=== PATIENT | female | born 1995 | race Hispanic/Latino ===

== ENCOUNTER 2021-09-04 05:56 | Inpatient (IN) | payer BC ==
[2021-09-04 06:18] VITALS: BMI 24.5
[2021-09-04] MEDS ORDERED: Fentanyl 2 mcg/Bup 0.1% Cadd 100 ML ONE (07:13)
[2021-09-04 07:17] LABS: Hemoglobin 12.7 g/dL (12.0-15.5); Mean Corpuscular HGB CONC 34.9 g/dL (32.0-36.0); Mean Corpuscular Hemoglobin 33.6 pg (27.0-33.0); Mean Corpuscular Volume 96.3 fl (81.6-98.3); Mean Platelet Volume 12.9 fl (7.4-10.4); Platelet Count 159 10x3/uL (150-450); RBC Distribution Width 13.1 % (11.5-14.5); Red Blood Cell (RBC) Count 3.78 10x6/uL (3.90-5.03)
[2021-09-04 07:46] LABS: Syphilis Antibody Nonreactive (Nonreactive); Syphilis Antibody Index 0.03 S/CO (<1.00 Non-Reactive)
[2021-09-04 07:47] LABS: Hep B Surf Ag Non-Reactive S/CO (NonReactive)
[2021-09-04 07:54] LABS: HBSAg Index 0.17 S/CO (0-0.99)
[2021-09-04] MEDS ORDERED: ePHEDrine Sulfate 50 MG/10 ML VIAL SLOW IVP PRN (07:54)
[2021-09-04] MEDS ORDERED: diphenhydrAMINE 50 MG/ML VIAL IVP PRN (07:54)
[2021-09-04] MEDS ORDERED: Acetaminophen 325 MG TAB PO PRN (07:54)
[2021-09-04] MEDS ORDERED: Moisturizing Cream (Eucerin) 113 GM JAR TOP PRN (07:54)
[2021-09-04] MEDS ORDERED: Lactated Ringer's 500 ML IV PRN (07:54)
[2021-09-04] MEDS ORDERED: Ondansetron PF 4 MG/2 ML Vial IVP PRN ×2 (07:54→14:47)
[2021-09-04] MEDS ORDERED: Promethazine HCl 25 MG/ML VIAL IM PRN ×2 (07:54→14:47)
[2021-09-04] MEDS ORDERED: Naloxone HCl 0.4 mg/ml Vial IVP PRN ×2 (07:54)
[2021-09-04] MEDS ORDERED: Communication Order-Pharmacy FS SCH (08:00)
[2021-09-04] MEDS ORDERED: Fentanyl 2 mcg/Bupivacaine 0.1% Cassette 100 ML EPIDURAL SCH (08:00)
[2021-09-04 09:34] LABS: SARS-CoV-2 NAA Rapid Test Not Detected (NotDetected)
[2021-09-04] MEDS ORDERED: NS w/ Oxytocin 30 units 500 ML ONE ×2 (10:00→12:37)
[2021-09-04] MEDS ORDERED: Benzocaine-Menthol 82.5 ML CAN TOP PRN (14:47)
[2021-09-04] MEDS ORDERED: Preparation H Ointment 28 GM TUBE PR PRN (14:47)
[2021-09-04] MEDS ORDERED: Boostrix 0.5 ML (Tdap) VIAL IM ONE (14:47)
[2021-09-04] MEDS ORDERED: HYDROcodone/Acetaminophen 5/325 mg Tablet PO PRN ×2 (14:47)
[2021-09-04] MEDS ORDERED: diphenhydrAMINE 25 MG CAP PO PRN (14:47)
[2021-09-04] MEDS ORDERED: Lanolin Ointment 7 GM TUBE TOP PRN (14:47)
[2021-09-04] MEDS ORDERED: Bisacodyl 10 MG SUPP PR PRN (14:47)
[2021-09-04] MEDS ORDERED: Milk Of Magnesia 30 ML UDCUP PO PRN (14:47)
[2021-09-04] MEDS ORDERED: hydrALAZINE 20 MG/ML VIAL SLOW IVP PRN (14:47)
[2021-09-04] MEDS: Ibuprofen 800 MG TAB PO SCH ×2 (15:05→23:15)
[2021-09-04] MEDS: Ferrous Sulfate 325 MG TAB PO SCH (15:45)
[2021-09-04] MEDS: Docusate 100 MG CAP PO SCH (21:16)
[2021-09-05] MEDS: Ibuprofen 800 MG TAB PO SCH ×2 (06:25→13:28)
[2021-09-05 07:47] VITALS: TEMP 98.1
[2021-09-05] MEDS: Ferrous Sulfate 325 MG TAB PO SCH (08:07)
[2021-09-05] MEDS: Docusate 100 MG CAP PO SCH (08:36)
[2021-09-05] MEDS ORDERED: Prenatal Vitamin 1 TAB PO SCH (09:00)
[2021-09-05 11:44] VITALS: BP 121/80
== END 2021-09-05 14:15 | disposition home or self-care (01) | DRG 807 ==
LOC: CSHLD/OP 05:56 → CSHLD 06:28 → CSHPP 15:29
PROVIDERS: ADMIT Student in an Organized Health Care Education/Training Program; ATTEND Student in an Organized Health Care Education/Training Program
PROC: 10E0XZZ Delivery of Products of Conception, External Approach (ICD-10-PCS; principal; 2021-09-04)
PROC: 10907ZC Drainage of Amniotic Fluid, Therapeutic from Products of Conception, Via Natural or Artificial Opening (ICD-10-PCS; 2021-09-04)
PROC: 0HQ9XZZ Repair Perineum Skin, External Approach (ICD-10-PCS; 2021-09-04)
DX: O70.0 First degree perineal laceration during delivery (principal); Z37.0 Single live birth; Z88.0 Allergy status to penicillin; Z88.2 Allergy status to sulfonamides; Z88.1 Allergy status to other antibiotic agents; Z3A.38 38 weeks gestation of pregnancy; Z20.822 Contact with and (suspected) exposure to COVID-19
CPT/HCPCS: 36415; 51702; 85027; 86780; 86850; 86900; 86901; 87340; 99285; J2590; U0002